=== PATIENT | female | born 2000 | race Two or more races ===

== ENCOUNTER 2024-11-23 17:07 | Emergency (ER) | payer OTHER ==
[~2024-11-23] VITALS: Ht 152.4 cm; Wt 63.0 kg
[2024-11-23] MEDS ORDERED: PRENATAL + DHA1 EAC1 (18:00)
[2024-11-23] MEDS ORDERED: 0.9 % SODIUM CHLORIDE 1,000 ML IV SCH (18:45)
[2024-11-23] MEDS ORDERED: ACETAMINOPHEN 500 MG GEL..CAP PO ONE (18:45)
[2024-11-23] MEDS ORDERED: CETIRIZINE HCL 5 MG/5 ML ML PO ONE (18:45)
[2024-11-23 19:06] LABS: BASO % 0.5 % (0.1-1.2); EOS # 0.01 (0.04-0.54); EOS % 0.1 % (0.7-7.0); LYMPH # 0.91 (1.18-3.74); LYMPH % 12.1 % (19.3-53.1); MEAN PLATELET VOLUME 9.40 fl (9.4-12.4); MONO # 0.61 (0.24-0.82); MONO % 8.1 % (4.7-12.5); NEUT # 5.88 (1.56-6.13); NEUT % 78.5 % (34.0-71.1); RED CELL DISTRIBUTION WIDTH 12.8 % (11.6-14.4)
[2024-11-23] MEDS ORDERED: OSELTAMIVIR PHOSPHATE 75 MG CAPSULE PO ONE (19:45)
[2024-11-23 19:55] LABS: COVID-19 AG NEGATIVE (NEGATIVE)
[2024-11-23] MEDS ORDERED: OSEL75CA PO (19:57)
[2024-11-23] MEDS ORDERED: TUSSIN100 MG/51 PO (19:57)
== END 2024-11-23 20:12 | disposition home or self-care (01) ==
LOC: ER 17:07
PROVIDERS: General Practice
DX: O99.512 Diseases of the respiratory system complicating pregnancy, second trimester (principal); J10.1 Influenza due to other identified influenza virus with other respiratory manifestations; Z3A.15 15 weeks gestation of pregnancy; Z20.822 Contact with and (suspected) exposure to COVID-19

== ENCOUNTER → 2025-02-22 | Emergency (ER) | payer OTHER ==
[~2025-02-22] VITALS: Ht 152.4 cm; Wt 72.6 kg
[~2025-02-22] MED LIST: CYCLOBENZAPRINE HCL 5 MG TABLET PO ONE; CYCLOBENZAPRINE10 MG PO; OSEL75CA PO; PRENATAL + DHA1 EAC1; PRENATE ELITE1 EAC2; PROAIR RESPICL90 MCG; TUSSIN100 MG/51 PO; TYLENOL325 MG
== END | disposition home or self-care (01) ==
LOC: ER 19:14
DX: O26.891 Other specified pregnancy related conditions, first trimester (principal); Z3A.01 Less than 8 weeks gestation of pregnancy; M54.30 Sciatica, unspecified side